=== PATIENT | female | born 1985 | race Caucasian/White ===

== ENCOUNTER 2024-07-07 15:13 | Outpatient (CLI) | payer MEDICAID, SELFPAY | END 2024-07-07 15:14 | disposition home or self-care (01) | PROVIDERS: PCP Emergency Medicine; Visit Provider Emergency Medicine | DX: L03.116 Cellulitis of left lower limb (principal); B96.89 Other specified bacterial agents as the cause of diseases classified elsewhere | CPT/HCPCS: 86140; 87070 ==

== ENCOUNTER 2024-10-18 11:59 | Outpatient (CLI) | payer MEDICAID, SELFPAY ==
[2024-10-20 02:49] LABS: HPV Source Cervix
== END 2024-10-18 12:00 | disposition home or self-care (01) ==
PROVIDERS: PCP Emergency Medicine; Visit Provider Physician Assistant
DX: Z12.4 Encounter for screening for malignant neoplasm of cervix (principal); Z11.51 Encounter for screening for human papillomavirus (HPV); Z13.6 Encounter for screening for cardiovascular disorders; Z13.29 Encounter for screening for other suspected endocrine disorder; Z13.9 Encounter for screening, unspecified
CPT/HCPCS: 80053; 80061; 84443; 87624; 87625; 88141; 88142